=== PATIENT | male | born 1950 | race Caucasian/White ===

== ENCOUNTER 2016-09-08 12:00 | Inpatient (IN) | payer OTHER ==
[2016-09-08] MEDS ORDERED: ACETAMINOPHEN 325 MG TAB PO ONE (16:00)
[2016-09-08] MEDS ORDERED: ACETAMINOPHEN 325 MG TAB PO PRN ×2 (17:13)
[2016-09-08] MEDS ORDERED: ONDANSETRON DISINTEGRATING 4 MG TAB PO PRN (17:13)
[2016-09-08] MEDS ORDERED: HYDROCODONE/APAP 5/325 TAB PO PRN (17:13)
[2016-09-08] MEDS ORDERED: THIAMINE HCL 500 MG in NS 100 ML IV ONE (17:13)
[2016-09-08] MEDS ORDERED: LORazepam 2 MG/ML INJ IVP PRN (17:13)
[2016-09-08] MEDS ORDERED: PROTOCOL MAGNESIUM 1 DOSE IV PRN (17:13)
[2016-09-08] MEDS ORDERED: ALBUTEROL 60 PUFFS/8 GM MDI IH PRN (17:13)
[2016-09-08] MEDS ORDERED: ONDANSETRON 4 MG/2 ML VIAL IVP PRN (17:13)
[2016-09-08] MEDS ORDERED: LORazepam 1 MG TAB PO ONE (17:13)
[2016-09-08] MEDS ORDERED: ALBUTEROL 3 ML DEYVIAL IH PRN (17:13)
--- NOTE | 2016-09-08 17:17 | EDPHY ---
H & P Time Seen by Provider: 09/08/16 13:32 HPI/ROS: CHIEF COMPLAINT: Requesting help with alcohol abuse HISTORY OF PRESENT ILLNESS: This is a 66-year-old male who comes to the hospital of his own accord, requesting help with his alcoholism. He tells me that he has had an escalation in his drinking pattern over the past year or so. He states that he currently drinks 6 shots of whiskey daily. It is get interfere with his work and social life. Friends have encouraged him to seek help. His female friend tells him that she does not want to spend time with him unless he is sober. He is motivated to quit drinking. His last drink was approximately 6 hours previous. He took an Ativan also a few hours ago. REVIEW OF SYSTEMS: A ten point review of systems was performed and is negative with the exception of the items mentioned in the HPI. No recent illnesses. Past Medical/Surgical History: Hypertension Anxiety Left knee replacement 6 months ago Social History: He lives alone with 2 cats. 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 He smokes 1/ 2 pack of cigarettes daily. He drinks at least 6 shots of whiskey daily. He denies the use of illicit drugs. Smoking Status: Former smoker Physical Exam: General Appearance: Alert. Vital signs reviewed. Blood pressure 134/92. Eyes: Pupils equal and round, no conjunctival injection, no discharge. Anicteric. ENT, Mouth: Mucous membranes are moist, no oropharyngeal erythema or edema. Neck: No lymphadenopathy, supple. Respiratory: Lungs are clear to auscultation; no wheezes, rales, or rhonchi. Cardiovascular: Regular rate and rhythm; no murmur, rub, or gallop. Gastrointestinal: Abdomen is soft and nontender, no masses or organomegaly, bowel sounds normal. Skin: Warm and dry, no rashes on exposed skin, normal color. Back: Nontender to palpation over the thoracolumbar spine. No CVAT. Extremities: No lower extremity edema, no calf tenderness or swelling. Neurological: Alert and oriented. Moving all four extremities easily and equally. He is not tremulous. JESSI. EOMI. Facial expression symmetric. Tongue midline. Psychiatric: Normal affect. No agitation. Constitutional: Initial Vital Signs Temperature (C) 36.6 C 09/08/16 12:09 Heart Rate 88 09/08/16 12:09 Respiratory Rate 16 09/08/16 12:09 Blood Pressure 134/92 H 09/08/16 12:09 O2 Sat (%) 97 09/08/16 12:09 O2 Delivery Mode Room Air Allergies/Adverse Reactions: No Known Allergies Allergy (Verified 10/06/14 10:51) Home Medications: Medication Instructions Recorded amLODIPine BESYLATE [Norvasc 2.5 2.5 mg PO DAILY #0 tab 01/24/16 mg (*)] Aspirin EC [Aspirin EC 81 mg (*)] 81 mg PO DAILY 09/08/16 Escitalopram Oxalate [Lexapro] 10 mg PO DAILY 09/08/16 LORazepam [Ativan (*)] 0.25 - 1 mg PO DAILY PRN 09/08/16 Lisinopril/Hydrochlorothiazide 1 each PO DAILY 09/08/16 [Zestoretic 20-25 mg Tablet] Propranolol HCl [Inderal 10mg (*)] 30 mg PO DAILY 09/08/16 Medical Decision Making ED Course/Re-evaluation: 66-year-old male with a history of alcohol abuse, requesting help. He is not currently in withdrawal but has not had a drink for several hours. He is being admitted for medical withdrawal. He has a history of anxiety. He is not suicidal. He is being admitted to Dr. Mathieu Sramiento, hospitalist service. Differential Diagnosis: I considered a differential diagnosis that includes but is not limited to alcohol abuse, cysts multi substance abuse, suicidality, depression, and anxiety. - Data Points Medications Given: Discontinued Medications Acetaminophen (Tylenol) 650 mg PO ONCE ONE Stop: 09/08/16 16:01 Last Admin: 09/08/16 15:57 Dose: 650 mg Departure - Departure Disposition: [facility] Inpatient Acute Clinical Impression: Alcohol abuse Condition: Good
[2016-09-08 17:41] LABS: % IMMATURE GRANULYOCYTES 0.3 % (0.0-1.1); ABSOLUTE IMMATURE GRANULOCYTES 0.02 10^3/uL (0.00-0.10); ADD DIFF? NO; ADD MORPH? NO; ADD SCAN? NO; ATYPICAL LYMPHOCYTE FLAG 10 (0-99); FRAGMENT RBC FLAG 0 (0-99); HEMATOCRIT 41.5 % (40.0-51.0); HEMOGLOBIN 14.9 g/dL (13.7-17.5); LEFT SHIFT FLG 0 (0-99); LIPEMIA HEMOLYSIS FLAG 90 (0-99); MEAN CELL HEMOGLOBIN CONCENTR. 35.9 g/dL (32.4-36.7); MEAN PLATELET VOLUME 10.2 fL (8.7-11.7); PLATELET CLUMPS FLAG 0 (0-99); PLATELET COUNT 194 10^3/uL (150-400); RED BLOOD CELL COUNT 4.03 10^6/uL (4.40-6.38); RED CELL DISTRIBUTION WIDTH 14.8 % (11.5-15.2)
[2016-09-08] MEDS: NS W/ 20 KCl/L 1,000 ML IV SCH (17:43)
[2016-09-08 17:45] LABS: INR 0.96 (0.83-1.16); PROTIME(PATIENT) 12.7 SEC (12.0-15.0)
[2016-09-08 17:48] LABS: ALANINE AMINOTRANSFERASE 117 IU/L (21-72); ALBUMIN 4.2 g/dL (3.5-5.0); ALKALINE PHOSPHATASE 62 IU/L (38-126); ANION GAP 19 mEq/L (8-16); ASPARTATE AMINOTRANSFERASE 132 IU/L (17-59); BILIRUBIN,TOTAL 1.3 mg/dL (0.1-1.4); CALCIUM 9.4 mg/dL (8.5-10.4); CARBON DIOXIDE 23 mEq/l (22-31); CHLORIDE 100 mEq/L (97-110); CREATININE 0.7 mg/dL (0.7-1.3); ETHANOL SERUM 139 mg/dL (0-10); GLOMERULAR FILTRATION RATE > 60; GLUCOSE 66 mg/dL (70-100); MAGNESIUM 1.6 mg/dL (1.6-2.3); POTASSIUM 3.7 mEq/L (3.5-5.2); SODIUM 142 mEq/L (134-144); TOTAL PROTEIN 7.4 g/dL (6.3-8.2)
--- NOTE | 2016-09-08 18:28 | GHP ---
[f rep st] HISTORY AND PHYSICAL DATE OF ADMISSION: 09/08/2016 CHIEF COMPLAINT: Alcohol addiction and possible withdrawal. HISTORY OF PRESENT ILLNESS: This is a 66-year-old male who presents with a friend to the hospital fo r admission for alcohol withdrawal. The history has been obtained from the patient. Primarily, ther e is very scant information in the EMR. This is a 66-year-old male who reports he has been drinking regularly for the last year. He admits t o drinking 6-8 shots of bourbon a day and says he does not drink more. I have spoken with a friend o katja montoya, Jaime, who reports that he is probably drinking more than that. It is reported that he has shown up in places of work and at parties quite intoxicated and driving. So one would surmise that alesha barrera is probably drinking more than 8 shots of bourbon a day. The patient himself reports this amount o f alcohol and his last consumption was at 10:00 o'clock on the morning of admission. He was brought to the hospital by a friend. The patient has consumed alcohol intermittently in his life, but he reports never in abuse at this [facility]. Up until approximately a year ago, he reports that he would have a glass of wine with dinner, b ut never drank heavily. He denies having a history of withdrawal, seizures or DTs. He also denies b lacking out and says that he has not ever had an automobile accident while he has been drinking, and has never been arrested for DUI. This is his first attempt at recovery from alcohol. Medically, he denies a recent fever, chills, sweats, nausea or vomiting. He says currently, he is fe eling slightly tremulous. He denies a prior history of coronary artery disease or family history of the same and denies recent chest pain, shortness of breath, orthopnea or PND. He also denies any rec ent sore throat, cough, fever or shortness of breath. He admits to having some GERD and will intermi ttently take a PPI medication, but it is not a persistent problem. There is no prior history of hepa titis or jaundice. He has in the last several years, had some joint difficulty and is status post re placement of his left knee which has gone well. He also had surgery on his left foot and his left el bow. PAST MEDICAL HISTORY: Denies asthma, allergies, diabetes or renal problems. He does have a history of hypertension which is currently under treatment. PAST SURGICAL HISTORY: He has had a left knee replacement, surgical repair of the left elbow. ALLERGIES: No medical allergies. REVIEW OF SYSTEMS: A 10-point review of systems is negative except as noted above in the HPI. 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 He lives on the site of the stone yard. He is with a daughter age 21, is attending and do ing well. Alcohol per above, currently in abuse. Tobacco: He smokes 1/2 to 1 pack of cigarettes a day currently. He reports he only started smoking again at the time of his divorce 3 years ago, and had not smoked cigarettes for many years. There is a total pack history of approximately 10-15 pack year history here. Drugs: None. He does not use marijuana or any other recreational drugs. FAMILY HISTORY: Negative. There is no history of familial alcoholism or coronary artery disease. PHYSICAL EXAM: GENERAL: This is a pleasant, alert gentleman who is slightly tremulous. VITAL SIGNS : Blood pressure is elevated at 159/109, pulse rate 84 and regular, respirations 16, nonlabored. He has normal oxygen saturation of 92% on room air. HEENT: Shows no signs of trauma. He does have th e odor of alcohol about him. Teeth are in moderately good repair without periodontal disease. Tongu e and buccal mucosa appear normal. There is no trauma. NECK: Supple without meningismus. LUNGS: Clear to P and A without wheezing or rales. HEART: Singular S1 and S2. No murmur, gallop or rub. ABDOMEN: Normoactive bowel sounds. No masses, tenderness or organomegaly. Specifically, the liver and spleen cannot be palpated and the liver is not tender. No hernias are noted. EXTREMITIES: Show ed no edema, cyanosis or clubbing. NEUROLOGIC: He is oriented x3. Tremulous male, interacting appr opriately. Cranial nerves 2 through 12 are intact to specific testing. He does not show nystagmus. Pupils are not pinpoint. LABORATORIES: All laboratories are pending at the time of this dictation. A CBC, CMP, alcohol level , urinalysis have been ordered. ASSESSMENT: 1. Acute alcohol intoxication and alcohol withdrawal. 2. Hypertension. 3. Tobacco abuse of 1/2 to 1 pack of cigarettes a day. A nicotine patch will be placed. 4. DVT prophylaxis will be with Lovenox. 5. History of gastroesophageal reflux disease (GERD). A proton pump will be ordered. PLAN: 1. The gentleman will be admitted on an alcohol withdrawal protocol. I have reordered his usual ant ihypertensive medications. A nicotine patch has been ordered along with a proton pump inhibitor. 2. I have spoken with the patient's friend, Jaime, who can be reached at [phone]. It was Esther yolandebruce who informed me that he is likely drinking much more than 8 shots of bourbon a day. He also con curs that he is resolute in stopping alcohol, but given his social situation of living alone at the [facility], he will likely have difficulty managing this problem alone. I have spoken to the patient and Sand[place] about organizing good social support for this gentleman's abstinence from alcohol. BILLING: The gentleman will be admitted to an inpatient status. He is going to require more than 2 midnights for management of his alcohol withdrawal and hypertension. TIME: This admission required 65 minutes, greater than 50% to manage his care and the phone call to his friend, Jaime. /[id number]/MODL
[2016-09-08] MEDS: PROPRANOLOL HCL 10 MG TAB PO SCH (18:30)
[2016-09-08] MEDS: FOLIC ACID 1 MG TAB PO SCH (18:31)
[2016-09-08] MEDS: MULTIVITAMINS 1 EACH TAB PO SCH (18:31)
[2016-09-08] MEDS: NICOTINE 21 MG/24 HR PATCH TD SCH (18:35)
[2016-09-08 19:06] LABS: COLOR YELLOW; LEUKOCYTE ESTERASE,URINE NEGATIVE (NEGATIVE); NITRITE,URINE NEGATIVE (NEGATIVE)
[2016-09-08 19:08] LABS: MUCUS 3+ /lpf (NONE-1+)
[2016-09-08 19:20] LABS: PHENCYCLIDINE URINE BCH < 6 ng/ml (NEGATIVE); TETRAHYDROCANNABINOL URINE < 5 ng/mL (NEGATIVE)
[2016-09-08 20:08] LABS: PHENCYCLIDINE URINE BCH NEGATIVE (NEGATIVE); TETRAHYDROCANNABINOL URINE NEGATIVE (NEGATIVE)
[2016-09-08] MEDS: FAMOTIDINE 20 MG TAB PO SCH (20:29)
[2016-09-08] MEDS: LORazepam 1 MG TAB PO PRN (20:30)
[2016-09-09] MEDS: LORazepam 1 MG TAB PO PRN ×7 (01:12→20:33)
[2016-09-09] MEDS: NS W/ 20 KCl/L 1,000 ML IV SCH ×3 (03:47→22:25)
[2016-09-09 04:51] LABS: % IMMATURE GRANULYOCYTES 0.4 % (0.0-1.1); ABSOLUTE IMMATURE GRANULOCYTES 0.02 10^3/uL (0.00-0.10); ADD DIFF? NO; ADD MORPH? NO; ADD SCAN? NO; ATYPICAL LYMPHOCYTE FLAG 20 (0-99); FRAGMENT RBC FLAG 0 (0-99); HEMATOCRIT 36.7 % (40.0-51.0); HEMOGLOBIN 13.1 g/dL (13.7-17.5); LEFT SHIFT FLG 0 (0-99); LIPEMIA HEMOLYSIS FLAG 90 (0-99); MEAN CELL HEMOGLOBIN 36.6 pg (27.9-34.1); MEAN CELL HEMOGLOBIN CONCENTR. 35.7 g/dL (32.4-36.7); MEAN CELL VOLUME 102.5 fL (81.5-99.8); MEAN PLATELET VOLUME 10.4 fL (8.7-11.7); PLATELET CLUMPS FLAG 10 (0-99); PLATELET COUNT 140 10^3/uL (150-400); RED BLOOD CELL COUNT 3.58 10^6/uL (4.40-6.38); RED CELL DISTRIBUTION WIDTH 14.5 % (11.5-15.2)
[2016-09-09 05:06] LABS: ALANINE AMINOTRANSFERASE 86 IU/L (21-72); ALBUMIN 3.2 g/dL (3.5-5.0); ALKALINE PHOSPHATASE 49 IU/L (38-126); ANION GAP 11 mEq/L (8-16); ASPARTATE AMINOTRANSFERASE 79 IU/L (17-59); BILIRUBIN,TOTAL 1.3 mg/dL (0.1-1.4); CALCIUM 8.7 mg/dL (8.5-10.4); CARBON DIOXIDE 25 mEq/l (22-31); CHLORIDE 105 mEq/L (97-110); CREATININE 0.7 mg/dL (0.7-1.3); GLOMERULAR FILTRATION RATE > 60; GLUCOSE 76 mg/dL (70-100); MAGNESIUM 1.5 mg/dL (1.6-2.3); POTASSIUM 3.5 mEq/L (3.5-5.2); SODIUM 141 mEq/L (134-144); TOTAL PROTEIN 5.9 g/dL (6.3-8.2)
[2016-09-09] MEDS: PROPRANOLOL HCL 10 MG TAB PO SCH (08:49)
[2016-09-09] MEDS: ESCITALOPRAM OXALATE 10 MG TAB PO SCH (08:49)
[2016-09-09] MEDS: NICOTINE 21 MG/24 HR PATCH TD SCH (08:49)
[2016-09-09] MEDS: FAMOTIDINE 20 MG TAB PO SCH ×2 (08:50→20:33)
[2016-09-09] MEDS: LISINOPRIL/HCTZ 10/12.5 MG 1 EA TAB PO SCH (08:50)
[2016-09-09] MEDS: FOLIC ACID 1 MG TAB PO SCH (08:50)
[2016-09-09] MEDS: ASPIRIN EC 81 MG TAB PO SCH (08:50)
[2016-09-09] MEDS: THIAMINE HCL 500 MG in NS 100 ML IV SCH (08:51)
[2016-09-09] MEDS: MULTIVITAMINS 1 EACH TAB PO SCH (08:51)
[2016-09-09] MEDS: ENOXAPARIN 40 MG/0.4 ML SYR SC SCH (09:24)
--- NOTE | 2016-09-09 13:21 | HOSPPROG ---
Hospitalist Progress Note Assessment/Plan: 66-year-old male brought to the hospital friend complaints of excessive alcohol consumption. My 1st encounter with the patient, chart reviewed. Discussed patient's care with Dr. Mathieu Sarmiento. # alcohol abuse Patient wishes to discontinue his alcohol consumption # alcohol withdrawal Continue CIWA protocol Will increase Ativan dosage per patient's request Anticipate patient will be here for 3-4 days going through withdrawal # anxiety Increase Ativan dose # tobacco abuse Encouraged cessation with education # disposition Will need resources for alcohol abuse prior to disposition Consult from social work and case management Patient has outside resources and support Subjective: Feeling very anxious today. Did not sleep well last evening. Complains of sweating. Some mild nausea. Objective: Vital Signs Temp Pulse Resp BP Pulse Ox 37.1 C 64 16 134/94 H 97 09/09/16 11:38 09/09/16 11:38 09/09/16 11:38 09/09/16 11:38 09/09/16 11:38 Laboratory Results 09/09/16 04:17 09/09/16 04:17 09/08/16 09/09/16 09/10/16 05:59 05:59 05:59 Intake Total 1125 Output Total 250 Balance 875 PT 12.7 SEC (12.0-15.0) 09/08/16 14:25 INR 0.96 (0.83-1.16) 09/08/16 14:25 - Physical Exam Constitutional: chronically ill appearing, uncomfortable, cachectic Eyes: PERRL, anicteric sclera, EOMI Ears, Nose, Mouth, Throat: moist mucous membranes, hearing normal, ears appear normal Cardiovascular: tachycardia, No JVD, No edema Respiratory: no respiratory distress, no rales or rhonchi, reduced air movement Gastrointestinal: No tenderness, No ascites, No guarding Skin: warm, no rashes or abrasions, no fluctuance, other (regina) Musculoskeletal: no joint effusions, muscular tenderness, generalized weakness Neurologic: AAOx3 Psychiatric: interacting appropriately, not encephalopathic, thought process linear, anxious ICD10 Worksheet Patient Problems: Problems Problem Status Diagnosed Alcohol abuse Acute Knee osteoarthritis Acute
[2016-09-09] MEDS ORDERED: MAGNESIUM SULF 2 GM/WATER 50 ML IV ONE (13:23)
[2016-09-10] MEDS: ZOLPIDEM TARTRATE 5 MG TAB PO PRN ×2 (00:36→21:26)
[2016-09-10] MEDS: LORazepam 1 MG TAB PO PRN ×7 (00:36→21:26)
[2016-09-10 04:55] LABS: % IMMATURE GRANULYOCYTES 0.4 % (0.0-1.1); ABSOLUTE IMMATURE GRANULOCYTES 0.02 10^3/uL (0.00-0.10); ADD DIFF? NO; ADD MORPH? NO; ADD SCAN? NO; ATYPICAL LYMPHOCYTE FLAG 20 (0-99); FRAGMENT RBC FLAG 0 (0-99); HEMATOCRIT 35.3 % (40.0-51.0); HEMOGLOBIN 12.5 g/dL (13.7-17.5); LEFT SHIFT FLG 0 (0-99); LIPEMIA HEMOLYSIS FLAG 90 (0-99); MEAN CELL HEMOGLOBIN 36.5 pg (27.9-34.1); MEAN CELL HEMOGLOBIN CONCENTR. 35.4 g/dL (32.4-36.7); MEAN CELL VOLUME 103.2 fL (81.5-99.8); MEAN PLATELET VOLUME 10.2 fL (8.7-11.7); PLATELET CLUMPS FLAG 0 (0-99); PLATELET COUNT 120 10^3/uL (150-400); RED BLOOD CELL COUNT 3.42 10^6/uL (4.40-6.38); RED CELL DISTRIBUTION WIDTH 14.6 % (11.5-15.2)
[2016-09-10 05:11] LABS: ANION GAP 11 mEq/L (8-16); CALCIUM 8.6 mg/dL (8.5-10.4); CARBON DIOXIDE 24 mEq/l (22-31); CHLORIDE 105 mEq/L (97-110); CREATININE 0.7 mg/dL (0.7-1.3); GLOMERULAR FILTRATION RATE > 60; GLUCOSE 85 mg/dL (70-100); MAGNESIUM 1.7 mg/dL (1.6-2.3); POTASSIUM 3.6 mEq/L (3.5-5.2); SODIUM 140 mEq/L (134-144)
[2016-09-10] MEDS: NS W/ 20 KCl/L 1,000 ML IV SCH (06:42)
[2016-09-10] MEDS ORDERED: MAGNESIUM SULF 1 GM/DEXTROSE 100 ML IV ONE (07:42)
[2016-09-10] MEDS: NICOTINE 21 MG/24 HR PATCH TD SCH (08:30)
[2016-09-10] MEDS: FOLIC ACID 1 MG TAB PO SCH (08:33)
[2016-09-10] MEDS: MULTIVITAMINS 1 EACH TAB PO SCH (08:33)
[2016-09-10] MEDS: PROPRANOLOL HCL 10 MG TAB PO SCH (08:33)
[2016-09-10] MEDS: FAMOTIDINE 20 MG TAB PO SCH ×2 (08:33→21:26)
[2016-09-10] MEDS: LISINOPRIL/HCTZ 10/12.5 MG 1 EA TAB PO SCH (08:34)
[2016-09-10] MEDS: ASPIRIN EC 81 MG TAB PO SCH (08:34)
[2016-09-10] MEDS: ESCITALOPRAM OXALATE 10 MG TAB PO SCH (08:34)
[2016-09-10] MEDS: ENOXAPARIN 40 MG/0.4 ML SYR SC SCH (08:34)
[2016-09-10] MEDS: THIAMINE HCL 500 MG in NS 100 ML IV SCH (10:10)
--- NOTE | 2016-09-10 11:05 | HOSPPROG ---
Hospitalist Progress Note Assessment/Plan: 66-year-old male brought to the hospital friend complaints of excessive alcohol consumption. My 1st encounter with the patient, chart reviewed. # alcohol abuse Patient wishes to discontinue his alcohol consumption # alcohol withdrawal Continue CIWA protocol (was at 9 this morning) he is willing to look at treatment options/ spoke with CM and they are looking into treatment plans including IP Anticipate patient will be here for 3-4 days going through withdrawal # anxiety Ativan #thrombocytopenia due to alcohol use # macrocytosis due to alcohol use # tobacco abuse Encouraged cessation # disposition Red knows this is affecting his life; he is willing to look at IP options if available to him Subjective: Red has no complaints/ anxious about dealing with his alcohol use. Objective: Vital Signs Temp Pulse Resp BP Pulse Ox 36.8 C 73 15 137/89 H 95 09/10/16 08:27 09/10/16 08:27 09/10/16 08:27 09/10/16 08:27 09/10/16 08:38 Laboratory Results 09/10/16 04:22 09/10/16 04:22 09/09/16 09/10/16 09/11/16 05:59 05:59 05:59 Intake Total 1125 400 Output Total 250 701 100 Balance 875 -301 -100 PT 12.7 SEC (12.0-15.0) 09/08/16 14:25 INR 0.96 (0.83-1.16) 09/08/16 14:25 - Physical Exam Constitutional: not in pain, chronically ill appearing Eyes: PERRL Ears, Nose, Mouth, Throat: hearing normal Cardiovascular: regular rate and rhythym, No tachycardia Respiratory: no respiratory distress Gastrointestinal: normoactive bowel sounds Skin: warm Musculoskeletal: no muscle tenderness Neurologic: AAOx3 Psychiatric: interacting appropriately, not encephalopathic ICD10 Worksheet Patient Problems: Problems Problem Status Diagnosed Alcohol abuse Acute Knee osteoarthritis Acute
[2016-09-11 04:45] LABS: % IMMATURE GRANULYOCYTES 0.5 % (0.0-1.1); ABSOLUTE IMMATURE GRANULOCYTES 0.02 10^3/uL (0.00-0.10); ADD DIFF? NO; ADD MORPH? NO; ADD SCAN? NO; ATYPICAL LYMPHOCYTE FLAG 10 (0-99); FRAGMENT RBC FLAG 0 (0-99); HEMATOCRIT 37.4 % (40.0-51.0); HEMOGLOBIN 13.2 g/dL (13.7-17.5); LEFT SHIFT FLG 0 (0-99); LIPEMIA HEMOLYSIS FLAG 90 (0-99); MEAN CELL HEMOGLOBIN 35.7 pg (27.9-34.1); MEAN CELL HEMOGLOBIN CONCENTR. 35.3 g/dL (32.4-36.7); MEAN CELL VOLUME 101.1 fL (81.5-99.8); MEAN PLATELET VOLUME 10.3 fL (8.7-11.7); PLATELET CLUMPS FLAG 0 (0-99); PLATELET COUNT 130 10^3/uL (150-400)
[2016-09-11 05:09] LABS: ANION GAP 10 mEq/L (8-16); CARBON DIOXIDE 26 mEq/l (22-31); CHLORIDE 102 mEq/L (97-110); CREATININE 0.7 mg/dL (0.7-1.3); GLOMERULAR FILTRATION RATE > 60; GLUCOSE 86 mg/dL (70-100); MAGNESIUM 1.7 mg/dL (1.6-2.3); POTASSIUM 3.2 mEq/L (3.5-5.2); SODIUM 138 mEq/L (134-144)
[2016-09-11] MEDS: LORazepam 1 MG TAB PO PRN ×5 (05:11→23:59)
[2016-09-11] MEDS: FOLIC ACID 1 MG TAB PO SCH (08:18)
[2016-09-11] MEDS: ASPIRIN EC 81 MG TAB PO SCH (08:18)
[2016-09-11] MEDS: ESCITALOPRAM OXALATE 10 MG TAB PO SCH (08:18)
[2016-09-11] MEDS: MULTIVITAMINS 1 EACH TAB PO SCH (08:18)
[2016-09-11] MEDS: THIAMINE HCL 100 MG TAB PO SCH (08:18)
[2016-09-11] MEDS: FAMOTIDINE 20 MG TAB PO SCH ×2 (08:18→20:06)
[2016-09-11] MEDS: PROPRANOLOL HCL 10 MG TAB PO SCH (08:19)
[2016-09-11] MEDS: NICOTINE 21 MG/24 HR PATCH TD SCH (08:19)
[2016-09-11] MEDS: ENOXAPARIN 40 MG/0.4 ML SYR SC SCH (08:19)
[2016-09-11] MEDS: LISINOPRIL/HCTZ 10/12.5 MG 1 EA TAB PO SCH (08:19)
[2016-09-11] MEDS ORDERED: MAGNESIUM SULF 1 GM/DEXTROSE 100 ML IV ONE (10:41)
--- NOTE | 2016-09-11 15:45 | HOSPPROG ---
Hospitalist Progress Note Assessment/Plan: 66-year-old male brought to the hospital friend complaints of excessive alcohol consumption. # alcohol abuse Patient wishes to discontinue his alcohol consumption his insurance will cover IP treatment/ strongly encouraged him to consider this / he lives alone and will likely start drinking again # alcohol withdrawal Continue CIWA protocol (was at 9 this morning) he is willing to look at treatment options/ # anxiety Ativan has a psychiatrist he sees in the OP setting #thrombocytopenia due to alcohol use # macrocytosis due to alcohol use # tobacco abuse Encouraged cessation # disposition likely dc in a.m. Subjective: Red says he has ongoing anxiety/ unsure if he wants to go IP. Objective: Vital Signs Temp Pulse Resp BP Pulse Ox 36.8 C 65 16 153/103 H 94 09/11/16 11:09 09/11/16 11:09 09/11/16 11:09 09/11/16 11:09 09/11/16 11:09 Laboratory Results 09/11/16 04:26 09/11/16 04:26 09/10/16 09/11/16 09/12/16 05:59 05:59 05:59 Intake Total 400 2450 500 Output Total 701 700 200 Balance -301 1750 300 PT 12.7 SEC (12.0-15.0) 09/08/16 14:25 INR 0.96 (0.83-1.16) 09/08/16 14:25 - Physical Exam Constitutional: no apparent distress, not in pain Eyes: PERRL Ears, Nose, Mouth, Throat: hearing normal Respiratory: no respiratory distress Skin: warm, other (cheeks flushed) Musculoskeletal: no muscle tenderness Neurologic: AAOx3 Psychiatric: interacting appropriately, anxious ICD10 Worksheet Patient Problems: Problems Problem Status Diagnosed Alcohol abuse Acute Knee osteoarthritis Acute
[2016-09-11] MEDS: ZOLPIDEM TARTRATE 5 MG TAB PO PRN (20:06)
[2016-09-12] MEDS ORDERED: MAGNESIUM SULF 1 GM/DEXTROSE 100 ML IV ONE (07:41)
[2016-09-12] MEDS: ENOXAPARIN 40 MG/0.4 ML SYR SC SCH (08:53)
[2016-09-12] MEDS: THIAMINE HCL 100 MG TAB PO SCH (08:54)
[2016-09-12] MEDS: FAMOTIDINE 20 MG TAB PO SCH (08:54)
[2016-09-12] MEDS: ASPIRIN EC 81 MG TAB PO SCH (08:54)
[2016-09-12] MEDS: LISINOPRIL/HCTZ 10/12.5 MG 1 EA TAB PO SCH (08:54)
[2016-09-12] MEDS: ESCITALOPRAM OXALATE 10 MG TAB PO SCH (08:55)
[2016-09-12] MEDS: FOLIC ACID 1 MG TAB PO SCH (08:55)
[2016-09-12] MEDS: PROPRANOLOL HCL 10 MG TAB PO SCH (08:55)
[2016-09-12] MEDS: MULTIVITAMINS 1 EACH TAB PO SCH (08:55)
[2016-09-12] MEDS: LORazepam 1 MG TAB PO PRN ×2 (08:55→12:08)
[2016-09-12] MEDS ORDERED: MAGNESIUM SULF 1 GM/DEXTROSE 100 ML BAG IV ONE (09:26)
[2016-09-12 11:56] VITALS: BP 154/99; PULSE 72; RESP 16; TEMP 98.4; O2SAT 93
[2016-09-12] MEDS: NICOTINE 21 MG/24 HR PATCH TD SCH (12:32)
--- NOTE | 2016-09-12 12:40 | HOSPPROG ---
Hospitalist Progress Note Assessment/Plan: 66-year-old male brought to the hospital friend complaints of excessive alcohol consumption. # alcohol abuse Patient wishes to discontinue his alcohol consumption his insurance will cover IP treatment/ going to IP rehab congratulated him on his decision # alcohol withdrawal not withdrawing, but more anxious today # anxiety Marium has a psychiatrist he sees in the OP setting #thrombocytopenia due to alcohol use # macrocytosis due to alcohol use # tobacco abuse Encouraged cessation # disposition dc to [place] Subjective: Red is feeling well/ wants to go to [place]. Objective: Vital Signs Temp Pulse Resp BP Pulse Ox 36.9 C 72 16 154/99 H 93 09/12/16 11:55 09/12/16 11:55 09/12/16 11:55 09/12/16 11:55 09/12/16 11:55 Laboratory Results 09/11/16 04:26 09/11/16 04:26 09/11/16 09/12/16 09/13/16 05:59 05:59 05:59 Intake Total 2450 1050 Output Total 700 200 Balance 1750 850 PT 12.7 SEC (12.0-15.0) 09/08/16 14:25 INR 0.96 (0.83-1.16) 09/08/16 14:25 - Physical Exam Constitutional: no apparent distress Eyes: PERRL Ears, Nose, Mouth, Throat: hearing normal Respiratory: no respiratory distress Gastrointestinal: normoactive bowel sounds Skin: warm Musculoskeletal: full muscle strength Neurologic: AAOx3 Psychiatric: interacting appropriately, not anxious ICD10 Worksheet Patient Problems: Problems Problem Status Diagnosed Alcohol abuse Acute Knee osteoarthritis Acute
--- NOTE | 2016-09-12 16:41 | GDS ---
[f rep st] DISCHARGE SUMMARY DISCHARGE DIAGNOSES: 1. Alcohol abuse. 2. Alcohol withdrawal. 3. Anxiety. 4. Thrombocytopenia. 5. Macrocytosis. 6. Tobacco abuse. BRIEF HISTORY: Mr. Ng is a very nice 66-year-old man, who presented to the hospital for admission for alcohol withdrawal. He has been drinking regularly for the past year. He admits to drinking 6-8 shots of bourbon a day. His friend thinks that he may be drinking more. He was brought to the hospital by a friend. He has consumed alcohol intermittently in his life, but now has been drinking more so. He denies having any history of withdrawal seizures or DTs. He was admitted for alcohol intoxication and alcohol withdrawal. HOSPITAL COURSE PER PROBLEM: 1. Alcohol abuse: He wished to discontinue his alcohol consumption. We had a good talk about going to inpatient rehabilitation to address his alcohol use. He had made up his mind this morning to go to [facility] in [place]. He will be discharged there. His friend is driving him there. 2. Alcohol withdrawal: He was treated by the [facility] protocol. On discharge today, he had no signs or symptoms of withdrawal, but had significant anxiety. 3. Anxiety: He has a psychiatrist that he sees in an outpatient setting. 4. Thrombocytopenia: This is due to alcohol use. 5. Macrocytosis: Due to alcohol use. 6. Tobacco abuse: Encourage cessation. PENDING LABS AND TESTS: None. CONDITION AT DISCHARGE: Stable. Blood pressure is 154/99, respiratory rate 16 , pulse 72, temperature is 36.9 Celsius, O2 sat on room air 91%. MEDICATIONS AT DISCHARGE: Please see the EMR. DISCHARGE INSTRUCTIONS: Care per [place]. I congratulated Mr. Ng on his decision to seek further help. /[id number]/MODL MTDD
== END 2016-09-12 12:44 | disposition home or self-care (01) | DRG 897 ==
LOC: F3N 15:09
PROVIDERS: ADMIT Internal Medicine Pulmonary Disease; ATTEND Internal Medicine
DX: F10.229 Alcohol dependence with intoxication, unspecified (principal); F10.230 Alcohol dependence with withdrawal, uncomplicated; D69.6 Thrombocytopenia, unspecified; I10 Essential (primary) hypertension; F17.210 Nicotine dependence, cigarettes, uncomplicated; F41.9 Anxiety disorder, unspecified; K21.9 Gastro-esophageal reflux disease without esophagitis
CPT/HCPCS: G0479; G0480; J1650; J3411; J3475